=== PATIENT | female | born 1995 | race Two or more races ===

== ENCOUNTER 2017-02-11 18:52 | Observation (INO) | payer MEDICAID ==
[~2017-02-11] VITALS: Ht 162.6 cm; Wt 86.5 kg
[2017-02-11] MEDS ORDERED: ONDANSETRON 2MG/ML, 2ML IVPush ONE (19:00)
[2017-02-11] MEDS ORDERED: MORPHINE SULFATE 4 MG/ML, 1ML IVPush PRN ×2 (19:00→21:00)
[2017-02-11] MEDS ORDERED: SODIUM CHLORIDE 0.9% 1,000ML IVBOLUS ONE ×2 (19:00→21:00)
[2017-02-11] MEDS ORDERED: SODIUM CHLORIDE FLUSH 10ML SYR IVF ONE (19:00)
[2017-02-11] MEDS ORDERED: CEFD300C37 PO (19:17)
[2017-02-11] MEDS ORDERED: PLEASE ENTER HEIGHT AND WEIGHT MC SCH (19:30)
[2017-02-11] MEDS ORDERED: ONDANSETRON 2MG/ML, 2ML ONE ×2 (19:31→21:08)
[2017-02-11 19:43] LABS: BLOOD UREA NITROGEN 8 mg/dL (7-18)
[2017-02-11 19:55] LABS: HEMATOCRIT 32.2 % (34.6-47.8); HEMOGLOBIN 10.8 g/dL (11.7-16.4)
[2017-02-11 20:00] LABS: ASPARTATE AMINO TRANSFERASE 9 U/L (15-37)
[2017-02-11] MEDS ORDERED: SODIUM CHLORIDE 0.9% 1,000 ML IV ONE (20:59)
[2017-02-11] MEDS ORDERED: ONDANSETRON 2MG/ML, 2ML IVPush PRN ×2 (21:00→22:00)
[2017-02-11 21:07] VITALS: BP 105/82
[2017-02-11] MEDS ORDERED: MIDAZOLAM 1 MG/ML, 2ML ONE (21:07)
[2017-02-11] MEDS ORDERED: FENTANYL PF 100 MCG/2ML ONE ×2 (21:07)
[2017-02-11] MEDS ORDERED: PROPOFOL 10 MG/ML, 20ML ONE (21:08)
[2017-02-11] MEDS ORDERED: DEXAMETHASONE 4 MG/ML, 1ML ONE ×2 (21:08)
[2017-02-11] MEDS ORDERED: ROCURONIUM 10 MG/ML ONE (21:08)
[2017-02-11] MEDS ORDERED: SUCCINYLCHOLINE 20 MG/ML, 10ML ONE (21:08)
[2017-02-11] MEDS ORDERED: CEFAZOLIN 1,000 MG ONE ×2 (21:09)
[2017-02-11] MEDS ORDERED: BUPIVACAINE/PF 0.25% ONE (21:32)
[2017-02-11] MEDS ORDERED: EPINEPHRINE 1 MG/ML, 1ML ONE (21:32)
[2017-02-11] MEDS ORDERED: KETAMINE 10 MG/ML, 20ML ONE (21:48)
[2017-02-11] MEDS ORDERED: FENTANYL PF 100 MCG/2ML IV PRN (22:00)
[2017-02-11] MEDS ORDERED: HYDROmorphone 1 MG/ML, 1ML IV PRN (22:00)
[2017-02-11] MEDS ORDERED: ACETAMINOPHEN 325 MG TABLET PO PRN (22:00)
[2017-02-11] MEDS ORDERED: PROMETHAZINE 25 MG/ML, 1ML IV PRN (22:00)
[2017-02-11] MEDS ORDERED: MEPERIDINE/PF 25MG/0.5ML IVPush PRN (22:00)
[2017-02-11] MEDS ORDERED: OXYcodone 5 MG/5 ML ORAL.SOL UDC PO PRN (22:00)
[2017-02-11] MEDS ORDERED: GLYCOPYRROLATE 0.4 MG/2 ML, 2ML ONE (22:08)
[2017-02-11] MEDS ORDERED: NEOSTIGMINE 1 MG/ML, 10ML ONE (22:08)
[2017-02-11] MEDS ORDERED: BUPIVACAINE/PF-EPI 0.25% 1:200K IM ONE (22:15)
[2017-02-11] MEDS ORDERED: CEFTRIAXONE PMX 1GM/50ML 50 ML IV ONE (23:30)
[2017-02-11 23:33] LABS: HEMATOCRIT 26.8 % (34.6-47.8)
[2017-02-12] MEDS ORDERED: ONDANSETRON 2MG/ML, 2ML IV PRN (01:00)
[2017-02-12] MEDS ORDERED: IBUPROFEN 600 MG TABLET PO PRN (01:00)
[2017-02-12] MEDS ORDERED: HYDROmorphone 1 MG/ML, 1ML IV PRN (01:00)
[2017-02-12] MEDS ORDERED: KETOROLAC 30 MG/1 ML IV PRN (01:00)
[2017-02-12] MEDS: OXYcodone/APAP 5/325MG TABLET PO PRN ×2 (01:17→02:09)
[2017-02-12] MEDS ORDERED: HYDR-883 PO (04:45)
[2017-02-12] MEDS ORDERED: IBUP-1223 PO (04:47)
== END 2017-02-12 06:45 | disposition home or self-care (01) ==
LOC: ED 19:08 → INTOOBSV 21:19 → EDIP 21:19 → 4NOR 02-12 00:22
PROVIDERS: ADMIT Obstetrics & Gynecology Female Pelvic Medicine and Reconstructive Surgery; ATTEND Obstetrics & Gynecology Female Pelvic Medicine and Reconstructive Surgery
DX: O42.911 Preterm premature rupture of membranes, unspecified as to length of time between rupture and onset of labor, first trimester (principal); O00.101 Right tubal pregnancy without intrauterine pregnancy; Z3A.01 Less than 8 weeks gestation of pregnancy
CPT/HCPCS: 36415; 59121; 76801; 80053; 84702; 85014; 85018; 85025; 86850; 86900; 88305; 93005; 96374; 96375; 96376; 99291; G0378; J0171; J0330; J0690; J0696; J1100; J1170; J1885; J2250; J2405; J2704; J2710; J3010; J3490; J7030